=== PATIENT | male | born 1990 | race Caucasian/White ===

== ENCOUNTER 2016-07-01 11:05 | Emergency (ER) | payer SELFPAY ==
[~2016-07-01] VITALS: Ht 172.7 cm; Wt 80.7 kg
[2016-07-01 11:19] VITALS: BP 129/82
--- NOTE | 2016-07-01 14:00 | NUR ---
Note undone in EDM - 07/01/16 at 1526 by [email or web address] 25/ BIB FAMILY C/O LAC WOUND TO LEFT 5TH FINGER; COVER W/ GAUZE. AAOX4 WITH EVEN AND STEADY GAIT; LUNGS CLEAR BL; HR EVEN AND REGULAR; PT DENIES ANY FEVER, CP, SOB, OR COUGH AT THIS TIME; PATIENT STATES PAIN OF 10/10 AT THIS TIME; VSS; PATIENT POSITIONED FOR COMFORT; HOB ELEVATED; BEDRAILS UP X2; BED DOWN. ER MADE AWARE OF PT STATUS.
--- NOTE | 2016-07-01 14:00 | NUR ---
25/M BIB FAMILY C/O LAC WOUND TO LEFT 5TH FINGER; COVER W/ GAUZE;PT FEEL NUMB NOTED AT THIS TIME; CP<3MINS NOTED AT THIS TIME. AAOX4 WITH EVEN AND STEADY GAIT; LUNGS CLEAR BL; HR EVEN AND REGULAR; PT DENIES ANY FEVER, CP, SOB, OR COUGH AT THIS TIME; PATIENT STATES PAIN OF 10/10 AT THIS TIME; VSS; PATIENT POSITIONED FOR COMFORT; HOB ELEVATED; BEDRAILS UP X2; BED DOWN. ER MD MADE AWARE OF PT STATUS.
--- NOTE | 2016-07-01 14:30 | NUR ---
ER MD DR SPICER EVALUATING PT AT BEDSIDE
[2016-07-01] MEDS ORDERED: LIDOCAINE 1% 500 MG/50 ML VIAL INJ ONE (14:40)
[2016-07-01] MEDS ORDERED: BACITRACIN OINT 500 UNITS/GM PKT TP ONE (15:40)
[2016-07-01 16:20] VITALS: BP 144/98
--- NOTE | 2016-07-01 16:20 | NUR ---
Patient discharged with v/s stable. Written and verbal after care instructions given and explained. Patient alert, oriented and verbalized understanding of instructions. Ambulatory with steady gait. All questions addressed prior to discharge. ID band removed. Patient advised to follow up with PMD. Rx of BACTRIM & MOTRIN given. Patient educated on indication of medication including possible reaction and side effects. Opportunity to ask questions provided and answered.
== END 2016-07-01 16:20 | disposition home or self-care (01) ==
LOC: MED 11:05
DX: S61.217A Laceration without foreign body of left little finger without damage to nail, initial encounter (principal); R03.0 Elevated blood-pressure reading, without diagnosis of hypertension; W45.8XXA Other foreign body or object entering through skin, initial encounter; Y93.89 Activity, other specified; Y92.89 Other specified places as the place of occurrence of the external cause; Y99.8 Other external cause status
CPT/HCPCS: 12001; 73130; 99284; Q0092